=== PATIENT | male | born 1955 | race Caucasian/White ===

== ENCOUNTER 2020-09-17 06:49 | Day surgery (SDC) | payer OTHER ==
[~2020-09-17] VITALS: Ht 185.4 cm; Wt 97.7 kg
[~2020-09-17 06:49] MED LIST: MULTIVITAMIN PO; PROZAC20 MG PO; PSYLLIUM HUSK PO
[2020-09-17 07:48] LABS: HEMATOCRIT 44.1 % (42.0-54.0); HEMOGLOBIN 15.2 g/dL (13.5-17.5); MCH 30.6 pg (26.0-34.0); MCHC 34.5 g/dL (31.0-37.0); MCV 88.9 fL (80.0-100.0); MEAN PLATELET VOLUME 9.7 fL (7.4-10.4); RBC 4.96 10x6/uL (4.20-6.10); RDW 13.1 % (11.5-14.5); WBC 5.8 10x3/uL (4.8-10.8)
[2020-09-17 07:53] VITALS: BP 122/74; Ht 185.4 cm; Wt 97.7 kg
[2020-09-17] MEDS ORDERED: TYLENOL W/CODEI1 TAB PO (10:20)
--- NOTE | 2020-09-17 14:32 | NUR ---
IN AND OUT BLADDER CATHETERIZATION PERFORMED, PATIENT TOLERATED PROCEDURE WELL. 1000 ML CLEAR YELLOW URINE DRAINED. STRAIGHT CATH REMOVED. DR SCHOFIELD CALLED TO INFORM OF THE AMOUNT OF URINE THAT WAS DRAINED, DR SCHOFIELD ORDERS FOR PATIENT TO BE DISCHARGED, TO RETURN TO ER IF UNABLE TO VOID LATER
--- NOTE | 2020-09-17 14:45 | NUR ---
PATIENT INSTRUCTED TO RETURN TO ER IF UNABLE TO VOID AND HAS STRONG URGE, PATIENT INSTRUCTED PER DR SCHOFIELD TO NOT FORCE FLUIDS BUT NOT COMPLETELY WITHHOLD FLUIDS, FOR THE NEXT 4-6 HOURS. PATIENT AND SPOUSE AGREEABLE WITH PLAN. DISCHARGED HOME VIA WHEELCHAIR TO PRIVATE VEHICLE WITH SPOUSE
== END 2020-09-17 14:45 | disposition home or self-care (01) ==
LOC: D.OPS 06:49
PROVIDERS: Anesthesiology; ATTEND Surgery
DX: K64.8 Other hemorrhoids (principal); K64.9 Unspecified hemorrhoids